=== PATIENT | female | born 1980 | race Caucasian/White ===

== ENCOUNTER 2023-03-11 12:48 | Emergency (ER) | payer OTHER, SELFPAY ==
[2023-03-11 13:02] VITALS: BP 129/86; PULSE 112; RESP 18; TEMP 37; O2SAT 95; BMI 50.8
--- NOTE | 2023-03-11 16:22 | XR_ITS ---
The [address] [address] Patient Name: VALENTINA GEIGER MRN: [id number] date: 1980 Sex: F Assigned Patient Location: ER Current Patient Location: ED.MAIN Accession/Order Number: [id number] Exam Date: 03/11/2023 16:38 Report Date: 03/11/2023 17:07 At the request of: RAY GUERRERO Procedure: XR chest 2V EXAM: XR chest 2V TECHNIQUE: PA and lateral view of the chest HISTORY: cough/ fever COMPARISON: None. FINDINGS: The heart and mediastinum are unremarkable. Hazy opacity over the left costophrenic angle and posteriorly. Degenerative changes are seen of the thoracic spine. XR/XR chest 2V IMPRESSION: Hazy airspace opacity posteriorly on the left which may represent atelectasis and/or pneumonia. Electronically authenticated by: TOSHIA DEGROOT Date: 03/11/2023 17:07
--- NOTE | 2023-03-11 16:23 | ED_ITS ---
HPI - URI/Sore Throat General Chief Complaint: Upper Respiratory Infection Stated Complaint: FLU LIKE SYMPTOMS Time Seen by Provider: 03/11/23 16:15 Source: patient History of Present Illness HPI Narrative: patient is a 43-year-old female presents to the Emergency Room with concerns of runny nose congestion sore throat and cough. Patient reports cough somewhat productive, symptoms started abruptly approximaately 24-36 hours ago. Positive night sweats last night. Patient reports coughing with occasional vomit. Unable to keep down Tylenol or Motrin today. Patient works in a factory with multiple exposures. States she was concerned noting vesicles in her throat today. Patient denies any recent exposure to qhpt-ergb-hhu-mouth. She had her initial boosters for Covid. patient denies any diarrhea or abdominal pain. MD elicited complaint: Reports fever, cough, sore throat, rhinorrhea and nasal congestion; Denies sinus pain Severity: moderate Description of mucous: Reports clear Associated symptoms: Reports fever, myalgias, headache (with coughing. ), rhinorrhea and nasal congestion Related Data Previous Rx's Medication Instructions Recorded azithromycin 250 mg tablet 250 mg PO DAILY 4 days #4 tabs 03/11/23 (Zithromax) promethazine-DM 6.25 mg-15 mg/5 mL 5 ml PO Q6H PRN cough 3 days #118 03/11/23 oral syrup mL Allergies Allergy/AdvReac Type Severity Reaction Status Date / Time dicyclomine Allergy Severe Verified 03/11/23 13:08 Review of Systems ROS Constitutional Reports: fever, chills and night sweats; Denies: change in weight or fatigue Eyes Denies: change in vision Ears, nose, mouth, and throat Reports: throat pain and nasal congestion; Denies: throat swelling Cardiovascular Denies: chest pain or palpitations Respiratory Reports: cough; Denies: shortness of breath Gastrointestinal Reports: nausea and vomiting (with coughing); Denies: abdominal pain Genitourinary Denies: painful urination Musculoskeletal Denies: back pain Integumentary/Breast Denies: rash or itching Neurological Denies: headache Psychiatric Denies: anxiety Hematologic/Lymphatic Denies: easy bruising Exam Narrative Exam Narrative: Nurses notes and vital signs reviewed and patient is not hypoxic. General: The patient appears well, but uncomfortable, complaining of sore throat, patient seated in conference room.patient made aware that we do not have any open rooms for patient's at the time, despite her extended wait. Skin: Warm, dry, no pallor noted.no evidence of rash Head: Normocephalic, atraumatic Neck: Supple, trachea mid-line, no tenderness, no lymphadenopathy Eye: Pupils are equal, round and reactive to light, EOMI Ears, Nose, Mouth, and Throat: TM are clear, normal light reflex, oral mucosa is moist, mild posterior oropharynx erythema no tonsillar hypertrophy, no vesicles, uvula is mid-line, no exudate Cardiovascular: Regular Rate and Rhythm Respiratory: Patient is in no distress, no accessory muscle use, lungs are jarek r to auscultation, no wheezing, rales or rhonchi.with deep breaths patient began coughing up sputum and subsequently vomited Chest Wall: no tenderness Back: non-tender, no CVA tenderness Musculoskeletal: normal ROM, no tenderness, no swelling GI: Normal bowel sounds, no tenderness to palpation, no masses appreciated. No rebound, guarding, or rigidity noted. Neurological: A&O x4 Psychiatric: Cooperative Constitutional Vital Signs, click to edit/add: Last Vital Signs Temp 98.6 F 03/11/23 13:02 Pulse 112 H 03/11/23 13:02 Resp 18 03/11/23 13:02 BP 129/86 03/11/23 13:02 Pulse Ox 95 03/11/23 13:02 O2 Del Method Room Air 03/11/23 13:02 Course Vital Signs Vital signs: Vital Signs Temperature 98.6 F 03/11/23 13:02 Pulse Rate 112 H 03/11/23 13:02 Respiratory Rate 18 03/11/23 13:02 Blood Pressure 129/86 03/11/23 13:02 Pulse Oximetry 95 03/11/23 13:02 Oxygen Delivery Method Room Air 03/11/23 13:02 Temperature 98.6 F 03/11/23 13:02 Pulse Rate 112 H 03/11/23 13:02 Respiratory Rate 18 03/11/23 13:02 Blood Pressure 129/86 03/11/23 13:02 Pulse Oximetry 95 03/11/23 13:02 Oxygen Delivery Method Room Air 03/11/23 13:02 MDM - URI/Sore Throat MDM Narrative Medical decision making narrative: presents with clinical presentation for upper respiratory infection. patient medicated with Zofran for nausea, followed with Tylenol 1 g by mouth. Rapid strep, influenza and Coban swabsobtained, given productive cough with fever reported at home chest x-ray ordered. x-ray reviewed, concern for infiltrate versus atelectasis left posterior lung, patient was placed on doxxycycline, but then stated that doxycycline makes her vomit. He should be treated with azithromycin suspected community acquired pneumonia. Her ALLERGIES list only dicyclomine. We discussed need to follow-up with PCP, she is given the next 2-3 dayss off work pending symptom improvement. She'll be given a prescription for nausea medication and cough suppressant. - discussed acuity in the Emergency Room, and apologies to the patient for weight time, she appears nontoxic in no acute distress. She may return if symptoms worsen or new symptoms develop. She ongoing Tylenol and Motrin dosage. The patient is to followup with primary care physician in next 2-3 days or to return to the emergency department should any of the signs or symptoms worsen or new symptoms develop. Patient had questions answered. The patient agrees with the following Diagnosis and Treatment plan and the patient will be discharged home. Lab Data Attestation: I reviewed the patient's lab results. Labs: Lab Results 03/11/23 Range/Units 16:28 SARS-CoV-2 (PCR) Negative (NEGATIVE) Influenza Type A Ag Negative Influenza Type B Ag Negative Streptococcus Screen Negative Imaging Data Chest x-ray: Radiologist's impression: Assigned Patient Location: ER Current Patient Location: ED.MAIN Accession/Order Number: [id number] Exam Date: 03/11/2023 16:38 Report Date: 03/11/2023 17:07 At the request of: RAY GUERRERO Procedure: XR chest 2V EXAM: XR chest 2V TECHNIQUE: PA and lateral view of the chest HISTORY: cough/ fever COMPARISON: None. FINDINGS: The heart and mediastinum are unremarkable. Hazy opacity over the left costophrenic angle and posteriorly. Degenerative changes are seen of the thoracic spine. IMPRESSION: Hazy airspace opacity posteriorly on the left which may represent atelectasis and/or pneumonia. Electronically authenticated by: TOSHIA DEGROOT Date: 03/11/2023 17:07 Discharge Plan Discharge Chief Complaint: Upper Respiratory Infection Clinical Impression: Upper respiratory infection, Community acquired pneumonia Patient Disposition: Home, Self-Care Time of Disposition Decision: 17:18 Condition: Good Prescriptions / Home Meds: New azithromycin [Zithromax] 250 mg tablet 250 mg PO DAILY 4 Days Qty: 4 0RF Rx Instructions: start on day 2 of therapy promethazine-DM 6.25-15 mg/5 mL syrup 5 ml PO Q6H PRN (Reason: cough) 3 Days Qty: 118 1RF Instructions: Community Acquired Pneumonia (ED) Additional Instructions: please contact her doctor for follow-up this week for reevaluation, work note provided Stand Alone Forms: Portal Instructions Referrals: Physician,Non-Staff, MD [Primary Care Provider] - 1 week
[2023-03-11] MEDS: ONDANSETRON 4 MG RAPDIS TABLET SL (16:47)
[2023-03-11 16:55] LABS: Internal Control Within Normal Limits; Strep A Antigen Screen Negative
[2023-03-11 17:00] LABS: Influenza Virus A Antigen Negative; Influenza Virus B Antigen Negative; Internal Control Within Normal Limits
[2023-03-11 17:01] LABS: SARS-CoV-2 Ag NEGATIVE (NEGATIVE)
[2023-03-11] MEDS: AZITHROMYCIN 250 MG TABLET 500 MG PO (17:32)
[2023-03-11] MEDS: ACETAMINOPHEN 500 MG TABLET 1000 MG PO (17:32)
[2023-03-11 17:44] LABS: Bilirubin Urine NEGATIVE (NEGATIVE); Blood Urine LARGE (NEGATIVE); Clarity Urine CLOUDY (CLEAR); Color Urine YELLOW (YELLOW); Glucose Urine UA NEGATIVE (NEGATIVE); Ketones Urine NEGATIVE (NEGATIVE); Leukocyte Esterase Urine NEGATIVE (NEGATIVE); Nitrite Urine NEGATIVE (NEGATIVE); Protein Urine NEGATIVE (NEG/TRACE); Specific Gravity Urine >=1.030 (1.005-1.025); pH Urine 5.5 (5.0-9.0)
[2023-03-11 17:45] LABS: Urine Microscopic Indicated YES
[2023-03-11 17:51] LABS: Amorphous Sediment Urine MANY; Bacteria Urine TRACE #/HPF (NONE SEEN); Cast Seen? NONE SEEN #/LPF (NONE SEEN); Crystals Seen? None Seen #/HPF (None Seen); Mucus Urine NONE SEEN (NONE SEEN); RBC Urine 0-2 #/HPF (0-2); Squamous Epithelial Cell Urine RARE #/LPF (NONE/RARE); WBC Urine NONE SEEN #/HPF (NONE SEEN)
[2023-03-11 17:52] LABS: Urine Culture Indicated NO
[2023-03-12 16:06] LABS: SARS-CoV-2 NAA NOT DETECTED (NOT DETECTE)
== END 2023-03-11 17:37 | disposition home or self-care (01) ==
PROVIDERS: Personal Emergency Response Attendant; Emergency Provider Emergency Medicine
DX: J18.9 Pneumonia, unspecified organism (principal); J06.9 Acute upper respiratory infection, unspecified; Z20.822 Contact with and (suspected) exposure to COVID-19
CPT/HCPCS: 71046; 81001; 87070; 87635; 87804; 87811; 87880; 99285

== ENCOUNTER 2024-05-04 19:33 | Emergency (ER) | payer OTHER, SELFPAY ==
[2024-05-04 19:41] VITALS: BP 144/82; PULSE 80; TEMP 36.4; O2SAT 96; BMI 49.5
--- OUTSIDE RECORDS SUMMARY | 2024-05-04 19:43 | XMS_ITS | CCD ---
Author Organization [facility] Inform ion [facility] Care Team Providers Care Attending Anesthesiologist Name Role Phone MARLEN BILLS Admitting Unavailable MARLEN BILLS Attending Unavailable REQUEST, DR ROBISON LISTED Primary Care Unavaila ble WEST, DR CHAIM Guerrero Consulting Unavailable NEGAR, MARLEN ESPOSITO Consulting Unavailable MARLEN BILLS Admitting Unavailable NEGAR, MARLEN ESPOSITO Attending Unavailable REQUEST, DR ROBISON LISTED Primary Care Unavaila ble REQUEST, DR ROBISON LISTED Primary Care Unavaila ble LUZ, RAMY Admitting Unavailable LUZ, RAMY Attending Unavailable ALHAJI CLAROS Consulting Unavailable HAY, DR LEONARD Admitting Unavailable HAY, DR LEONARD Attending Unavailable HAY, DR LEONARD Consulting Unavailable REQUEST, DR ROBISON LISTED Primary Care Unavaila ble HAY, DR LEONARD Admitting Unavailable HAY, DR LEONARD Attending Unavailable HAY, DR LEONARD Consulting Unavailable Hackett, Cecile Unavailable Daniel ALSTON, Katiuska Goldberg Attending Unavailable Dalton PABLO, Kobe Enrique Admitting Unavailable Stacy ALSTON, Danielle Farley Attending Un available Loynd DO, Cheryl Goldberg Attending Unavaila ble Allergies Allergy Classification Reported Allergen(s) Allergy Type Date of Onset Reaction(s) Facility (1 source) predniSONE Drug Allergy severe anger [employer] Other (1 source) Adhesive bandage; Translations: [Adhesive Bandage] Propensity to adverse reactions (disorder) [facility] Repository (1 source) Cephalexin; Translations: [cephalexin] Drug Allergy [facility] Repository Medications Current Medications Medication Drug Class(es) Dates Sig (Normalized) Sig (Original) doxycycline hyclate 100 mg oral capsule (1 source) Tetracycline-class Drug Start: 01-15-2023 take 1 capsule by mouth every twelve hours Doxycycline Hyclate 100 MG 1 capsule Orally Twice a day for 10 day(s) Dec, Active methylPREDNISolone 4 mg oral tablet (1 source) Corticosteroid Start: 01-15-2023 Medrol (Thomas) 4 MG as directed Orally for daily dose take half with breakfast half with dinner for 6 days Dec, Active Problems Active Problems Problem Classification Problem Date Documented Da te Episodic/Chronic Abdominal pain (2 sources) Abdominal pain; Translations: [Unspecified abdominal pain] Episodic Administrative/social admission (1 source) Dietary management surveillance; Translations: [Dietary counseling and surveillance] Episodic Anxiety disorders (1 source) Posttraumatic stress disorder; Translations: [Post-traumatic stress disorder, unspecified] Chronic Conditions associated with dizziness or vertigo (2 sources) Meniere's disease, unspecified ear; Translations: [Meniere's disease] Onset: 09-08-2021 Chronic Disorders of lipid metabolism (1 source) Mixed hyperlipidemia; Translations: [Mixed hyperlipidemia] Chronic Essential hypertension (1 source) Hypertensive disorder; Translations: [Essential (primary) hypertension] Chronic Gastroduodenal ulcer (except hemorrhage) (1 source) Antral ulcer; Translations: [Gastric ulcer, unspecified as acute or chronic, without hemorrhage or perforation] Chronic Gastrointestinal hemorrhage (1 source) Melena; Translations: [Melena] Episodic Inflammatory diseases of female pelvic organs (4 sources) Abscess of vulva; Translations: [ABSCESS OF VULVA] Onset: 02-18-2022 Episodic Menstrual disorders (1 source) Disorder of menstruation; Translations: [Irregular menstruation, unspecified] Chronic Mood disorders (2 sources) Major depressive disorder, single episode, unspecified; Translations: [Depression] Chronic Nausea and vomiting (3 sources) Nausea with vomiting, unspecified; Translations: [Vomiting] Onset: 04-06-2021 Episodic Other ear and sense organ disorders (1 source) Unspecified otitis externa, right ear; Translations: [UNS OTITIS EXTERNA RT EAR] Onset: 09-08-2021 Chronic Other endocrine disorders (1 source) Polycystic ovaries; Translations: [Polycystic ovarian syndrome] Chronic Other gastrointestinal disorders (1 source) Celiac disease; Translations: [Celiac disease] Chronic Other gastrointestinal disorders (1 source) Loose stool; Translations: [Other fecal abnormalities] Episodic Other gastrointestinal disorders (1 source) Constipation; Translations: [Constipation, unspecified] Episodic Other nutritional; endocrine; and metabolic disorders (1 source) Morbid obesity; Translations: [Morbid (severe) obesity due to excess calories] Chronic Other nutritional; endocrine; and metabolic disorders (1 source) Body mass index 40+ - severely obese; Translations: [Body mass index (BMI) 50.0-59.9, adult] Chronic Other skin disorders (1 source) Hirsutism; Translations: [Hirsutism] Episodic Other upper respiratory infections (2 sources) Acute pharyngitis, unspecified; Translations: [Acute maxillary sinusitis, unspecified] Onset: 04-06-2021 Episodic Residual codes; unclassified (1 source) Noncompliance with treatment; Translations: [Patient's noncompliance with other medical treatment and regimen] Episodic Residual codes; unclassified (1 source) Insomnia; Translations: [Insomnia, unspecified] Episodic Spondylosis; intervertebral disc disorders; other back problems (1 source) Spondylosis without myelopathy or radiculopathy, thoracic region; Translations: [SPONDYLS W/O MYELO-/RADICULOP THOR] Onset: 06-15-2021 Chronic Viral infection (1 source) COVID-19; Translations: [COVID-19] Onset: 04-06-2021 Past or Other Problems Problem Classification Problem Date Documented Da te Episodic/Chronic Fever of unknown origin (4 sources) Fever, unspecified; Translations: [FEVER UNSPECIFIED] Onset: 04-05-2021 Episodic Other aftercare (1 source) Other moth exterminator (current) drug therapy; Translations: [OTH PENITENTIARY CURRENT DRUG THERAPY] Onset: 04-06-2021 Episodic Other ear and sense organ disorders (3 sources) Otalgia, right ear; Translations: [OTALGIA RIGHT EAR] Onset: 09-06-2021 Episodic Other gastrointestinal disorders (1 source) Diarrhea, unspecified; Translations: [DIARRHEA UNSPECIFIED] Onset: 04-06-2021 Episodic Otitis media and related conditions (1 source) Otitis media, unspecified, bilateral; Translations: [OTITIS MEDIA UNSPECIFIED BILATERAL] Onset: 04-06-2021 Episodic Sprains and strains (8 sources) Strain of muscle and tendon of unspecified wall of thorax, subsequent encounter; Translations: [Strain of muscle, fascia and tendon at neck level, initial encounter] Onset: 06-10-2021 Episodic Superficial injury; contusion (1 source) Contusion of unspecified back wall of thorax, subsequent encounter; Translations: [CONTUS UNS BACK WALL THORAX SUBSQT] Onset: 06-21-2021 Episodic Results Test Name Value Interpretation Reference Range Facility Inpatient Clinical Summaryon 08-10-2023 Inpatient Clinical Summary [facility] [address] [place] [address] [address] Clinical Summary Person Information Name: Cara Lo Age: 43 Years : 1980 Sex: Female PCP: Marital Status: Phone: PCP: Race: White Ethnicity: Not or Language: Serbian Visit Id: Visit Reason: SI Speciality: Acuity: Enc Type: Inpatient Med Service: Behavioral Medicine/Psychiatric Arrival: 08/08/2023 13:04:17 Discharge: Dispo Type: Address: [address] [place] [address] Diagnosis: Bipolar 2 disorder Discharged To: Home Treatments: Devices/Equipment: Professional Skilled Services: Special Services and Community Resources: Counseling, Outpatient Mental Health Treatment Mode of Discharge Transportation: Reason for Admission: Identification 43-year-old? female admitted?after the police that brought her in and escorted her from her job?due to?suicidal ideations, and deemed unfit for work. Addendum by Vanna Grajeda on August 08, 2023 13:19:09 EDT Admit to the milieu Encourage patient to attend groups and activities Encourage patient to work on coping skills and goals Supportive person involvement as appropriate Start Topamax 50 mg twice daily for mood stability Start Vistaril Vistaril 25 mg 4 times daily as needed for anxiety Start Effexor 37.5 mg daily for depression Patient did sign a voluntary however immediately after she signed a 3-day letter Patient was diagnosed with bipolar 2 disorder Discharge Orders Activity Restrictions Diet Instruction Allergies Adhesive Bandage (Rash) cephalexin (Vomiting) Functional Status: Sensory Deficits: None History of Falls: None Mobility Assistance Prior to Admission: ADLs: Independent Gait: Steady Ambulation Assist: Assistive Device: Special Orthopedic Devices: Current Level of Assistance for Self-Care/Mobility: Cognitive Status: Orientation: Orientation Assessment: Oriented x 4 Level of Consciousness: Alert Characteristics of Speech: Clear Aspiration Risk: Affect/Behavior: Appropriate Laboratory or Other Results This Visit (last charted value for your 08/08/2023 visit) Chemistry 08/08/2023 5:39 AM Chol: 260 mg/dL -- Normal range between ( 25 and 199 ) LDL: 179 mg/dL -- Normal range between ( 0 and 99 ) HDL: 48.3 mg/dL -- Normal range between ( 40.0 and 60.0 ) Triglyceride: 162 mg/dL Cardiac Risk: 5.4 VLDL: 32 mg/dL -- Normal range between ( 8 and 39 ) Laboratory: Radiology: Measurements: Height: Weight: Blood Pressure: 126 mmHg / BMI: Respiratory: Respirations: Unlabored Respiratory Symptoms: None Cardiovascular: Heart Sounds: Heart Rhythm: Gastrointestinal: GI Symptoms: Bowel Sounds: Present Vital Signs: Temp Axillary: Temp Temporal Artery: Temp Oral: 36.3 degC Temp Rectal: Apical Heart Rate: 70 bpm Peripheral Pulse Rate: 73 bpm Heart Rate: Respiratory Rate: 16 br/min Diet Diet: Feeding Tolerance: Appetite: Good Advanced Directives: Advance Directive: No Medical Durable Power of Glass Beveler Name: Surrogate Name: Guardian Name: Psychiatric Advanced Directives: No Shane Assessment: 22 Procedures No Procedures Documented Immunizations No Immunizations Documented This Visit New Medications [facility], [address], [place] [id number], [phone] benzocaine-menthol topical (Cepacol Sore Throat 15 mg-3.6 mg mucous membrane lozenge) 1 Lozenges Oral (given by mouth) every hour as needed sore throat for 30 Days. Refills: 0. Last Dose: ____ FLUoxetine (PROzac 40 mg oral capsule) 40 Milligram Oral (given by mouth) every day. Refills: 0. Last Dose: ____ topiramate (Topamax 50 mg oral tablet) 50 Milligram Oral (given by mouth) 2 times a day. Refills: 0. Last Dose: ____ Other Medications diphenhydrAMINE (diphenhydrAMINE 50 mg oral capsule) 50 Milligram Oral (given by mouth) once a day (at bedtime) as needed insomnia. Last Dose: ____ ibuprofen (ibuprofen 600 mg oral tablet) 600 Milligram Oral (given by mouth) every 6 hours as needed mild pain [1-3 on pain scale]. Last Dose: ____ Care Team Members: Attending Physician: Danielle Hancock Consulting Physician: Referring Physician: Patient Education Instructions: SBIRT_ Alcohol Education - ALL (Custom); Smoking Cessation Follow up: With: Address: When: [place] [address] [place] [address] 08/21/2023 08:00:00 Comments: Post hospital discharge appointment for therapy services with Zahra. With: Address: When: [place] [address] [place] [address] 08/15/2023 12:30:00 Comments: Post hospital discharge appointment for medica (more content not included)... Normal [facility] Progress Noteon 08-10-2023 Progress Note Pt was not present for the morning exercise group. Attended 03/26 therapeutic group sessions and 03/26 peer support group sessions. Electronically signed by Cheryl Restrepo 08/10/23 11:44 EDT Normal [facility] Progress Note-Nurseon 2023 Progress Note-Nurse Alert and oriented x4. Calm, cooperative, and pleasant. Medication compliant. Denies SI/HI/hallucinations- states I never had any of these problems to begin with . While feature writer asks assessment questions, patient appears to be agitated with the questions and states nothing is wrong anywhere, I am fine . Attends group as an active participant. Eats snack in the dining room. Initiates interaction with peers. Patient had a visit from her that appeared to go well- patient was allowed extra time with her per account contact associate provider due to being falsely refused her visit the night prior, and the distance that drives to get here. Denies any further questions, comments, or concerns. Does not appear to be in any acute distress. Will continue to monitor. Electronically signed by Marli Ramy B 08/09/23 22:32 EDT [facility] Progress Noteon 08-09-2023 Progress Note Pt was not present for the morning exercise group. Attended 1/2 therapeutic group sessions and 0/1 peer support group sessions. Electronically signed by Cheryl Restrepo 08/09/23 13:04 EDT [facility] Progress Note-Nurseon 2023 Progress Note-Nurse pt slept well/pleasant this am/ mood stable- is eating well/ does not want to share any type of feelings in group setting/ is working on alot of word puzzles- is c/o alot about this person at work has difficulty with/ does not plan going back / may use fmla and find different job/ is hopeful is finally getting help w/ services and hopefully disability stuff for - is denying feeling depressed or anxious/ no self harm thoughts- is somewhat projective and blaming/ will work on homework wants to go home tomorrow/ mood stable- napped couple hrs in afternoon Electronically signed by Hyacinth Medel 08/09/23 17:31 EDT [facility] Progress Note-Nurse Pt was a bit irritated upon initial assessment. Pt stated she didnt feel like she needs to be here. Pt and this RN talked for some time and pt verbalized feeling stressed from work related to issues with a co worker. This lead to her being put on a type of lay off from her job. Them saying she wasnt fit to work related to her mental health. Pt did not understand this as she denies being suicidal. Pt stated she does have intrusive thinking at times when she drives to work thinking her son and might be better off without her because they can get the services they need if they didnt have her income. Pt stated she also has thoughts of Why am I dong this? when she drives to work, stating she is miserable at that job because of the issues with the coworker. Pt stated she feels stressed being the caregiver of her son and not getting far with referrals for testing he needs so he can get services and possibly social security. Son is not able to do many many things. Cant barely do his own ADLs and definitely can not work, according to patient. Pt feels stressed that her is not able to work due to many of his own disabilities. She doesnt have any insurance and he has meds that are costly. She is the only income and has been denied for social security. Pt states they have been fighting with that for many years. Pt stated she feels incredibly stressed and now even more so being let go from work at this time. Pt and nurse discussed her taking this time here in [place] to collect her thoughts and make a plan for what is to come. Pt stated she would do well making lists as she feels like she is ADHD and her mind is not able to organize thinking at times. Pt stated she could benefit from a different psych provider for herself and her son. Pt stated she is not getting very far with what her son needs with their current psychiatrist. Pt denies suicidal thoughts but does admit to some intrusive thinking at times. Stated she doesnt have a plan and doesnt have any kind of intent on wanting to make a plan. But contributes the intrusive thinking to a large amount of stress both at home and work. No delusions or hallucinations. Pt took HS meds per order. Electronically signed by Casie Ramos 08/09/23 01:49 EDT Normal [facility] .Fentanyl Scrn wo Conf,Uron 08-08-2023 Ur Fentanyl Scrn Negative Normal NEG <1.0 [facility] Comment on above: Performed By: #### C [id number] ####[place] [address] Ur Fentanyl Scrn Qnt 0.08 ng/mL Normal <=0.99 [facility] Comment on above: Performed By: #### C [id number] ####[place] [address] .UA Microscp Ao 08-08-2023 UA RBC Quant 0 /HPF Normal 0-5 [facility] Comment on above: Performed By: #### . Urinalysis Microscopic Auto ####[place] [address] UA WBC Quant 0 /HPF Normal 0-5 [facility] Comment on above: Performed By: #### . Urinalysis Microscopic Auto ####[place] [address] .eGFRon 08-08-2023 GFR/1.73 sq M.predicted MDRD (S/P/Bld) [Vol rate/Area] mL/min/{1.73_m2} Normal >=60 [facility] Comment on above: Result Comment: [facility] have implemented the eGFR calculation approach that does not have a coefficient for race and that conforms to the NKF-ASN Task Force Recommendations. Stages of Chronic Kidney Disease GFR Stage 3a Mild to moderate loss of kidney function 59 to 45 Stage 3b Moderate to severe loss of kidney function 44 to 33 Stage 4 Severe loss of kidney function 29 to 15 Stage 5 Kidney failure Less than 15 GFR calculated using the CKD-Epi Creatinine Equation (2020): eGFR = 142 X min(SCr/?, 1)? X max(SCr /?, 1)-1.200 X 0.9938Age X 1.012 [if female] Abbreviations/Units: eGFR (estimated glomerular filtration rate) = mL/min/1.73 m2 SCr (standardized serum creatinine) = mg/dL ? = 0.7 (females) or 0.9 (males) ? = -0.241 (females) or -0.302 (males) min = indicates the minimum of SCr/? or 1 max = indicates the maximum of SCr/? or 1 Age = years Performed By: #### E GFR ####[place] [id number] CBC w/ Diffon 08-08-2023 Erythrocyte distribution width (RBC) [Ratio] 13.4 % Normal 11.6-14.8 [facility] Comment on above: Performed By: #### C BC ####[place] [id number] Hematocrit (Bld) [Volume fraction] 43.4 % Normal 36.0-46.0 [facility] Comment on above: Performed By: #### C BC ####[place] [id number] Hemoglobin (Bld) [Mass/Vol] 14.2 g/dL Normal 12.0-16.0 [facility] Comment on above: Performed By: #### C BC ####[place] [id number] MCH (RBC) [Entitic mass] 29.5 pg Normal 27.0-35.0 [facility] Comment on above: Performed By: #### C BC ####[place] [id number] MCHC 32.6 % Normal 31.0-37.0 [facility] Comment on above: Performed By: #### C BC ####[place] [id number] MCV (RBC) [Entitic vol] 90.3 fL Normal 80.0-100.0 [facility] Comment on above: Performed By: #### C BC ####[place] [id number] Platelet 232 x10*3/mcL Normal 150-450 [facility] Comment on above: Performed By: #### C BC ####[address] [address] Platelet mean volume (Bld) [Entitic vol] 9.8 fL Normal 6.7-10.6 [facility] Comment on above: Performed By: #### C BC ####[address] [address] RBC 4.81 x10*6/mcL Normal 3.80-5.20 [facility] Comment on above: Performed By: #### C BC ####[address] [address] WBC 8.4 x10*3/mcL Normal 4.5-11.0 [facility] Comment on above: Performed By: #### C BC ####[address] [address] CMPon 08-08-2023 Albumin [Mass/Vol] 4.4 g/dL Normal 3.2-4.9 [facility] Comment on above: Performed By: #### C OMP ####[address] [address] Albumin/Globulin [Mass ratio] 1.2 {ratio} Normal 1.1-2.2 [facility] Comment on above: Performed By: #### C OMP ####[address] [address] Alk Phos 74 IU/L Normal 32-91 [facility] Comment on above: Performed By: #### C OMP ####[address] [address] ALT [Catalytic activity/Vol] 24 U/L Normal 14-54 [facility] Comment on above: Performed By: #### C OMP ####[address] [address] Anion gap [Moles/Vol] 9 mmol/L Normal 4-12 [facility] Comment on above: Performed By: #### C OMP ####[address] [address] AST [Catalytic activity/Vol] 19 U/L Normal 15-41 [facility] Comment on above: Performed By: #### C OMP ####[address] [address] Bili Total 1.5 mg/dL High 0.3-1.2 [facility] Comment on above: Performed By: #### C OMP ####[address] [address] Calcium [Mass/Vol] 9.0 mg/dL Normal 8.5-10.3 [facility] Comment on above: Performed By: #### C OMP ####[address] [address] Chloride [Moles/Vol] 102 mmol/L Normal 98-110 [facility] Comment on above: Performed By: #### C OMP ####[address] [address] CO2 [Moles/Vol] 25 mmol/L Normal 22-32 [facility] Comment on above: Performed By: #### C OMP ####[address] [address] Creatinine [Mass/Vol] 0.84 mg/dL Normal 0.44-1.03 [facility] Comment on above: Performed By: #### C OMP ####[address] [address] Glucose [Mass/Vol] 103 mg/dL High 70-99 [facility] Comment on above: Performed By: #### C OMP ####[address] [address] Potassium [Moles/Vol] 3.4 mmol/L Normal 3.4-4.8 [facility] Comment on above: Performed By: #### C OMP ####[address] [address] Protein [Mass/Vol] 8.1 g/dL Normal 6.5-8.1 [facility] Comment on above: Performed By: #### C OMP ####[address] [address] Sodium [Moles/Vol] 136 mmol/L Normal 133-142 [facility] Comment on above: Performed By: #### C OMP ####[address] [address] Urea nitrogen [Mass/Vol] 11 mg/dL Normal 8-26 [facility] Comment on above: Performed By: #### C OMP ####[address] [address] Urea nitrogen/Creatini ne [Mass ratio] 13.1 mg/mg Normal 10.0-20.0 [facility] Comment on above: Performed By: #### C OMP ####[address] [address] Diff Autoon 08-08-2023 Baso Absolute 0.0 x10*3/mcL Normal 0.0-0.2 [facility] Comment on above: Performed By: #### . Automated Diff ####[address] [address] Basophils/100 WBC (Bld) 0.5 % Normal 0.0-1.5 [facility] Comment on above: Performed By: #### . Automated Diff ####[address] [address] Eos Absolute 0.0 x10*3/mcL Normal 0.0-0.4 [facility] Comment on above: Performed By: #### . Automated Diff ####[address] [address] Eosinophils/100 WBC (Bld) 0.5 % Normal 0.0-5.4 [facility] Comment on above: Performed By: #### . Automated Diff ####[address] [address] Lymph Absolute 2.3 x10*3/mcL Normal 1.0-4.8 [facility] Comment on above: Performed By: #### . Automated Diff ####[address] [place] [address] Lymphocytes/100 WBC (Bld) 27.3 % Normal 27.2-40.8 [facility] Comment on above: Performed By: #### . Automated Diff ####[address] [address] Wilbarger Absolute 0.5 x10*3/mcL Normal 0.1-1.1 [facility] Comment on above: Performed By: #### . Automated Diff ####[place] [id number] Monocytes/100 WBC (Bld) 5.4 % Normal 3.7-11.9 [facility] Comment on above: Performed By: #### . Automated Diff ####[place] [id number] Neutro Absolute 5.6 x10*3/mcL Normal 1.8-7.7 [facility] Comment on above: Performed By: #### . Automated Diff ####[place] [id number] Neutro Auto 66.3 % Normal 47.2-70.8 [facility] Comment on above: Performed By: #### . Automated Diff ####[place] [id number] ED Clinical Summaryon 2023 ED Clinical Summary [place] [id number] ED Clinical Summary Person Information Name: Cara Lo [facility] Age: 43 Years : 1980 Sex: Female PCP: Marital Status: Phone: Race: White Ethnicity: Not or Language: Serbian Visit Reason: Psychiatric screening exam; prescreen Acuity: 2 Enc Type: Emergency Med Service: Emergency Medicine Arrival: 08/08/2023 04:33:32 Discharge: 08/08/2023 12:09:00 LOS: 000 07:36 Checkin: 08/08/2023 04:33:32 Checkout: 08/08/2023 12:09:00 Dispo Type: Psychiatric Facility Address: [place] [address] Provider Notes: History of Present Illness Patient is a 43-year-old lady who comes to the emergency department brought by susana's kisha from work at [employer]. Possible SI. Plan to run car into a guardrail on my way home . ?Patient reports that she is just been under a lot of stress that she says since November she has had a lot of difficulties?at work she is?recovering from?complex PTSD?and psychiatric illness. ?She reports insomnia and elaine. ?She is not hallucinating she is not delusional she has been taking her medications following with her therapist regularly?she reports that she is been having some difficulties at work. ?She was at [employer] working today?and she reports they are very close proximity and she scratched her arm on?some kind of a bolt?and when she went to report it?was having some difficulty with the report?and the [employer] supervisor felt that she was not?cleared for work.? The patient had apparently asked someone about a suicide hotline?and had reported to a friend or family member that she was?going to wreck her car on purpose.? The patient reports that this was just talk?that she knows she is not going to commit suicide she does not have any intent?but is having a very difficult time?with her mental health and her?social outlook at this time. Review of Systems As reviewed in the HPR. All other systems reviewed are negative or normal. Attending Note Vitals & Measurements T:?36.6??C?(Oral)? HR:?75?(Peripheral)? HR:?75?(Monitored)? RR:?16? BP:?137/97? SpO2:?94%? HT:?175?cm? WT:?159?kg?(Dosing)? Diagnosis: 1:Depression Problems No Problems Documented Smoking Status: Smoking Status Never (less than 100 in lifetime) Functional Status: Sensory Deficits: History of Falls: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
--- NOTE | 2024-05-04 19:51 | PC.NURSE ---
Mid-level provider in to see pt.
--- NOTE | 2024-05-04 19:59 | ED.BACK1 ---
HPI HPI - Back Pain/Injury General Chief Complaint: Back Pain/Injury Stated Complaint: back pain Time Seen by Provider: 05/04/24 19:39 Source: patient Mode of arrival: Wheelchair Limitations: no limitations History of Present Illness HPI Narrative: Patient is a 44-year-old female presents to the ER with concerns of right mid to lower back pain. Patient states symptoms started this morning she reports a history of POTS occasionally will have nausea and vomiting in the morning and upon vomiting developed a pulling sensation in her right back patient took Motrin earlier today without any relief. She denies any radicular symptoms into her lower legs or into her abdomen. She denies any dysuria. She denies history of kidney stones. Patient states she has had similar symptoms in the back a little bit higher when she strained her rhomboids. She denies any current nausea or vomiting she denies fever or chills. Patient denies any abdominal pain. Patient denies chance of states she is not been sexually active she is due to start her menstrual cycle any day but has a history of PCOS and endometriosis. MD elicited complaint: Reports back pain and back injury (bending over this AM to vomit. ) Pertinent past history: Reports prior back pain Timing: Reports other (worse with position) Severity: moderate Similar Symptoms Previously: Yes Quality: Reports sharp, aching and spasming Associated symptoms: denies other symptoms, weakness and increased urinary frequency Treatments prior to arrival: NSAIDS Work related injury: No Related Data Previous Rx's ?Medication ?Instructions ?Recorded azithromycin 250 mg tablet 250 mg PO DAILY 4 days #4 tabs 03/11/23 (Zithromax) promethazine-DM 6.25 mg-15 mg/5 mL 5 ml PO Q6H PRN cough 3 days #118 03/11/23 oral syrup mL methylprednisolone 4 mg tablets in 4 mg PO DAILY #21 ea 05/04/24 a dose pack (Medrol (Thomas)) sulfamethoxazole 800 1 tab PO BID 3 days #6 tabs 05/04/24 mg-trimethoprim 160 mg tablet (Bactrim DS) tizanidine 4 mg capsule 4 mg PO TID PRN muscle spasticity 05/04/24 5 days #15 caps Allergies Allergy/AdvReac Type Severity Reaction Status Date / Time dicyclomine Allergy Severe Hives Verified 05/04/24 19:46 Opioid HPI Opioid Management Most Recent Opioid Data: Last Pain Scale 10 05/04/24 20:09 05/04/24 Review of Systems ROS Constitutional Denies: fever or chills Eyes Denies: change in vision Ears, nose, mouth, and throat Denies: throat pain or neck pain Cardiovascular Denies: chest pain Respiratory Denies: shortness of breath Gastrointestinal Denies: abdominal pain or nausea Genitourinary Denies: painful urination or urinary frequency Musculoskeletal Reports: back pain; Denies: neck pain, extremity pain, extremity swelling or joint pain Integumentary/Breast Denies: rash or itching Neurological Denies: headache Psychiatric Denies: anxiety PFSH PFSH Social History Little interest or pleasure in doing things: not at all Feeling down, depressed, or hopeless: not at all Exam Narrative Exam Narrative: Vital Signs reviewed and nurse's notes reviewed. The patient is not hypoxic. General: Alert, no acute distress, patient resting comfortably Skin: warm, intact, no pallor noted, no rash Head: Normocephalic, atraumatic Eye: Normal conjunctiva, EOMI Respiratory: No acute distress Abdomen: Normal bowel sounds, soft, nontender, no masses detected. No rebound, guarding, or rigidity noted. No midline pulsatile mass. Back: inspection of the back shows no obvious deformity, no swelling, no ecchymosis, contusion, abrasion, swelling, erythema, fluctuance or induration. No step offs or crepitus noted. No CVA tenderness noted on the left. + spasm to right paravertebral with pain from lower thoracic to upper lumbar. No midline bony pain. Tenderness noted to right paravertebral. Straight leg raise on left is negative. Straight leg raise on right is negative. Musculoskeletal: No deformity noted to bilateral lower extremities. no cyanosis or mottling noted. normal pulses at DP and PT 2+ bilaterally and symmetrically. Normal 5/5 strength at ankles with dorsiflexion and plantar flexion. Patient is able to ambulate. Normal sensation noted to the bilateral lower extremities. Neurological: alert and oriented x4, normal sensory and motor observed. DTR 2+ at patellar and achilles bilaterally. Psychiatric: Cooperative Constitutional Vital Signs, click to edit/add: Last Vital Signs Temp 97.6 F 05/04/24 19:41 Pulse 80 05/04/24 19:41 Resp 16 05/04/24 19:41 BP 144/82 H 05/04/24 19:41 Pulse Ox 96 05/04/24 19:41 O2 Del Method Room Air 05/04/24 19:41 Course Vital Signs Vital signs: Vital Signs Temperature 97.6 F 05/04/24 19:41 Pulse Rate 80 05/04/24 19:41 Respiratory Rate 16 05/04/24 19:41 Blood Pressure 144/82 H 05/04/24 19:41 Pulse Oximetry 96 05/04/24 19:41 Oxygen Delivery Method Room Air 05/04/24 19:41 Temperature 97.6 F 05/04/24 19:41 Pulse Rate 80 05/04/24 19:41 Respiratory Rate 16 05/04/24 19:41 Blood Pressure 144/82 H 05/04/24 19:41 Pulse Oximetry 96 05/04/24 19:41 Oxygen Delivery Method Room Air 05/04/24 19:41 MDM - Back Pain/Injury MDM Narrative Medical decision making narrative: Patient was educated on safe dosage of Motrin. Last taking more than recommended on the package may result in adverse side effects. Patient was agreeable to give a urine sample. She denies any history of kidney stones. She is without recent illness and symptoms of back pain started after she was leaning forward vomiting earlier this morning. Patient states the vomiting and nausea happen on occasion and are attributable to her POTS where she gets lightheaded and dizzy at times she denies any injury. She denies any fever fall or trauma denies any radicular symptoms. Patient was given morphine 6 mg IM and Valium 2 mg p.o. Patient reevaluated, reports symptoms are improved. She can breathe easily and tolerates pain much better, there is no evidence of rash. We discussed her work she is given a note to be off work through Sunday. We discussed medication patient initially denied any urinary symptoms she reports cutting caffeine and pop out of her diet and has been urinating more frequently this has been a symptom of a urinary tract infection in the past she is aware that a urine culture is pending but she is requesting treatment with Bactrim in the interim pending urine culture. I do not feel she has a kidney infection based on the urinalysis patient agreeable to return to the ER if symptoms worsen or new symptoms develop. We discussed use of the Medrol Dosepak and muscle relaxant. The patient was noted to be grossly neurologically intact. The patient was treated with adequate analgesia here in the emergency department. The patient vital signs were reviewed in the patient had no neurologic deficit noted. Due to the nature of the patient's history of present illness and the benign physical exam we do not feel that x-rays were clinically warranted. The patient is to followup in the next 3-5 days for repeat evaluation or to return to the emergency department if symptoms worsen or new symptoms develop. The patient will be discharged home with adequate analgesia. The patient has no other questions or concerns at this time. Lab Data Labs: Lab Results 05/04/24 Range/Units 20:10 Urine Color Yellow (YELLOW) Urine Clarity Clear (CLEAR) Urine pH 6.0 (5.0-9.0) Ur Specific [place] >=1.030 A (1.005-1.025) Urine Protein Negative (NEG/TRACE) mg/dL Urine Glucose (UA) Negative (NEGATIVE) mg/dL Urine Ketones Negative (NEGATIVE) mg/dL Urine Occult Blood Negative (NEGATIVE) Urine Nitrite Negative (NEGATIVE) Urine Bilirubin Negative (NEGATIVE) Urine Urobilinogen 1.0 (0.2-1.0) EU/dL Ur Leukocyte Esterase Negative (NEGATIVE) Urine RBC 0-2 (0-2) #/HPF Urine WBC 2-5 A (NONE SEEN) #/HPF Ur Squamous Epith Cells Few A (NONE/RARE) #/LPF Urine Crystals None seen (None Seen) #/HPF Urine Bacteria Small A (NONE SEEN) #/HPF Urine Casts None seen (NONE SEEN) #/LPF Urine Mucus Trace A (NONE SEEN) Ur Culture Indicated? Yes Urine HCG, Qual Negative (NEGATIVE) Discharge Plan Discharge Chief Complaint: Back Pain/Injury Clinical Impression: Back pain, UTI (urinary tract infection) Patient Disposition: Home, Self-Care Time of Disposition Decision: 20:45 Condition: Good Prescriptions / Home Meds: New sulfamethoxazole-trimethoprim [Bactrim DS] 800-160 mg tablet 1 tab PO BID 3 Days Qty: 6 0RF tizanidine 4 mg capsule 4 mg PO TID PRN (Reason: muscle spasticity) 5 Days Qty: 15 0RF methylprednisolone [Medrol (Thomas)] 4 mg tablets,dose pack 4 mg PO DAILY Qty: 21 0RF No Action azithromycin [Zithromax] 250 mg tablet 250 mg PO DAILY 4 Days Qty: 4 0RF Rx Instructions: start on day 2 of therapy promethazine-DM 6.25-15 mg/5 mL syrup 5 ml PO Q6H PRN (Reason: cough) 3 Days Qty: 118 1RF Print Language: Russian Instructions: Urinary Incontinence (ED), Back Pain (ED) Additional Instructions: Please follow up with your family doctor in the next 2-3 days for recheck Consider physical therapy referal if not improving Urine culture is pending Return to ER if symptoms worsen or new symptoms develop
[2024-05-04] MEDS: MORPHINE SULFATE 4 MG/ML VIAL 6 MG IM (20:09)
[2024-05-04] MEDS: ONDANSETRON 4 MG RAPDIS TABLET SL (20:09)
[2024-05-04] MEDS: DIAZEPAM 2 MG TABLET PO (20:15)
[2024-05-04 20:16] LABS: Bilirubin Urine NEGATIVE (NEGATIVE); Blood Urine NEGATIVE (NEGATIVE); Clarity Urine CLEAR (CLEAR); Color Urine YELLOW (YELLOW); Glucose Urine UA NEGATIVE (NEGATIVE); Ketones Urine NEGATIVE (NEGATIVE); Leukocyte Esterase Urine NEGATIVE (NEGATIVE); Nitrite Urine NEGATIVE (NEGATIVE); Protein Urine NEGATIVE (NEG/TRACE); Specific Gravity Urine >=1.030 (1.005-1.025)
[2024-05-04 20:17] LABS: HCG Qualitative Urine* NEGATIVE (NEGATIVE); Internal Control Within Normal Limits; Urine Microscopic Indicated YES
[2024-05-04 20:22] LABS: Bacteria Urine SMALL #/HPF (NONE SEEN); RBC Urine 0-2 #/HPF (0-2)
[2024-05-04 20:23] LABS: Cast Seen? NONE SEEN #/LPF (NONE SEEN); Crystals Seen? None Seen #/HPF (None Seen); Mucus Urine TRACE (NONE SEEN); Squamous Epithelial Cell Urine FEW #/LPF (NONE/RARE); Urine Culture Indicated YES
[2024-05-04] MEDS: SULFAMETHOXAZOLE/TRIMETHOPRIM 800-160 MG TABLET 1 TAB PO (20:53)
== END 2024-05-04 20:59 | disposition home or self-care (01) ==
PROVIDERS: Personal Emergency Response Attendant; Emergency Provider Emergency Medicine
DX: N39.0 Urinary tract infection, site not specified (principal); M54.9 Dorsalgia, unspecified; G90.A Postural orthostatic tachycardia syndrome [POTS]; E28.2 Polycystic ovarian syndrome; N80.9 Endometriosis, unspecified
CPT/HCPCS: 81001; 84703; 87086; 96372; 99284; J2270; Q0162

== ENCOUNTER 2024-06-07 07:49 | Emergency (ER) | payer OTHER, SELFPAY ==
[2024-06-07 07:53] VITALS: BP 140/89; PULSE 74; TEMP 36.9; O2SAT 95; BMI 51.7
--- OUTSIDE RECORDS SUMMARY | 2024-06-07 07:55 | XMS_ITS | CCD ---
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 Complaint Patient brought in by Judd ABREU for mental health evaluation after making comments at work. ED Attending Attestation I have assumed care of the patient from [Richard ], who has discussed the clinical presentation, work-up, and ED course thus far. I have reviewed the patient?s medical record and ED course and agree with all aspects of care thus far. Was signed out to me from Dr. Keene to awaiting the prescreener evaluation, patient has been suicidal plans, the patient will be admitted to [facility] for further psychiatric workup. Attending Note Vitals [...] 05:39 66.3 Lymph Auto 08/08/23 05:39 27.3 [place] Auto 08/08/23 05:39 5.4 Eos Auto 08/08/23 05:39 0.5 Basophil Auto 08/08/23 05:39 0.5 Neutro Absolute 08/08/23 05:39 5.6 Lymph Absolute 08/08/23 05:39 2.3 [place] Absolute 08/08/23 05:39 0.5 Eos Absolute 08/08/23 [...] by Kike Nava MD 08/08/23 11:44 EDT [facility] Evaluation note 01-15-2023 Note Date & [...] with PCP if febrile or new/worsening s/s. [facility] Other Clinical Note 01-05-2023 Note Date & [...] the first few days. ?You may use xsau-sxn-ciqmzta medicine, such as acetaminophen or ibuprofen, to [...] 100.4?F (38?C) or as advised? ?[employer] ? [id number] [employer]. [address] [place] [address], [place] [address]. All rights reserved. This information is not [...] Dry your ears with a towel or english division chair after getting wet. Also, use ear plugs [...] directed by your healthcare provider ?[employer] ? [id number] [employer]. [address] [place] [address]. All rights reserved. This information is not [...] self-care is to (more content not included)... [facility] History general Narrative - Reported 06-22-2015 [...] Surgical History EGD Hospitalization History see above [facility] Other Summary Purpose Family History No Family History Records FoundNo Family History Records Found Advance Directives No Advanced Directives Records FoundNo Advanced Directives Records Found Additional Source Comments INFORMATION SOURCE (unrecogn ized section and content) DATE CREATED AUTHOR 02/22/2022 [employer] DATE CREATED AUTHOR AUTHOR'S LEAH WILLIAM 08/19/2023 [facility] REASON FOR VISIT (unrecogniz ed section [...] BE BASED ON THE PRIMARY CLINICAL RECORDS. [employer] provides no warranty or guarantee of the accuracy or completeness of information in this document.
--- NOTE | 2024-06-07 08:00 | PC.NURSE ---
Bruise to right calf area, area slightly raised, no redness or warmth at site.
--- NOTE | 2024-06-07 08:11 | ED_ITS ---
HPI HPI - Extremity Injury (Lower) General Chief Complaint: Extremity Injury, Lower Stated Complaint: LOWER RIGHT EXTREMITY PAIN/SWELLING Time Seen by Provider: 06/07/24 08:05 Source: patient Mode of arrival: walk-in History of Present Illness HPI Narrative: The patient is a 44 years old female who is coming to the ER after she had a bruise to her right calf area, almost 45 minutes ago, the patient initially men tioned that she have a history of blood clot but when clarifying the patient apparently had history of ecchymosis or bruising easily Patient have no history of DVT and I did explain to her the mechanism of injury and the fact that the dog just hit her right calf area 45 minutes ago does not cause her to have a DVT The patient was able to move with no difficulty Related Data Home Medications ?Medication ?Instructions ?Recorded ?Confirmed famotidine 20 mg tablet 20 mg PO DAILY 06/07/24 06/07/24 Previous Rx's ?Medication ?Instructions ?Recorded ibuprofen 800 mg tablet 800 mg PO Q8H PRN pain #20 tabs 06/07/24 Allergies Allergy/AdvReac Type Severity Reaction Status Date / Time dicyclomine Allergy Severe Hives Verified 06/07/24 07:53 Opioid HPI Opioid Management Most Recent Pain and Opioid Data: Last Pain Scale 10 05/04/24 20:09 05/04/24 Review of Systems ROS Status of ROS 10 or more systems reviewed and unremark able except as noted in history and below PFSH PFSH Social History Little interest or pleasure in doing things: not at all Feeling down, depressed, or hopeless: not at all Exam Narrative Exam Narrative: Nurses notes and vital signs reviewed and patient is not hypoxic. General: Well-appearing and in no apparent distress. Skin: Warm, dry, no pallor noted. No rash. Head: Normocephalic, atraumatic. Lower extremity examination : The patient have ecchymosis in the calf area on the right side that is measuring 3 x 5 cm oval in shape The patient have no tenderness upon palpation of the tibia and the patient have no vascular injury detected Constitutional Vital Signs, click to edit/add: Last Vital Signs Temp 98.5 F 06/07/24 07:53 Pulse 74 06/07/24 07:53 Resp 20 06/07/24 07:53 BP 140/89 06/07/24 07:53 Pulse Ox 95 06/07/24 07:53 Course Vital Signs Vital signs: Vital Signs Temperature 98.5 F 06/07/24 07:53 Pulse Rate 74 06/07/24 07:53 Respiratory Rate 20 06/07/24 07:53 Blood Pressure 140/89 06/07/24 07:53 Pulse Oximetry 95 06/07/24 07:53 Temperature 98.5 F 06/07/24 07:53 Pulse Rate 74 06/07/24 07:53 Respiratory Rate 20 06/07/24 07:53 Blood Pressure 140/89 06/07/24 07:53 Pulse Oximetry 95 06/07/24 07:53 MDM - Extremity Injury (Lower) MDM Narrative Medical decision making narrative: The patient presenting with a simple bruise to her right calf area and I did explain to her and clarified the fact that this is not the mechanism of DVT specially that she just had a contusion 45 minutes ago The patient to apply Jimmy wrap elevate and ice treatment in addition to ibuprofen I did explain to the patient that in case of any increasing swelling or any other concerns that she developed over the next few days she is to come back to the ER but right now there is no concern for DVT The patient is to follow up with primary care physician in next 2-3 days or to return to the emergency department should any of the signs or symptoms worsen or new symptoms develop. The patient agrees with the following Diagnosis and Treatment plan and the patient will be discharged home. Discharge Plan Discharge Chief Complaint: Extremity Injury, Lower Clinical Impression: Contusion Patient Disposition: Home, Self-Care Time of Disposition Decision: 08:08 Condition: Good Prescriptions / Home Meds: New ibuprofen 800 mg tablet 800 mg PO Q8H PRN (Reason: pain) Qty: 20 0RF No Action famotidine 20 mg tablet 20 mg PO DAILY Print Language: Icelandic Instructions: Ice Pack Application (ED), Bone Bruise (ED) Referrals: Physician,Non-Staff, MD [Primary Care Provider] - 1 week
== END 2024-06-07 08:21 | disposition home or self-care (01) ==
PROVIDERS: Emergency Provider Emergency Medicine
DX: S80.11XA Contusion of right lower leg, initial encounter (principal); W54.1XXA Struck by dog, initial encounter
CPT/HCPCS: 99283

== ENCOUNTER 2024-12-01 02:29 | Emergency (ER) | payer OTHER, SELFPAY ==
--- OUTSIDE RECORDS SUMMARY | 2022-06-06 06:00 | XMS_ITS | Continuity of Care Document ---
Author Organization [facility] Address [address] [place] [address] Phone Care Team Providers Care Safety Intern Name Role Phone Addie BRUCE, Manoj Unavailable Unavailable Allergies, Adverse Reactions, Alerts Substance Reaction Status Criticality No Known Allergies Active No Inform ation Procedures Procedure Date Limited Oral Eval Intraoral-periapical 1st Film Bitewig-single Film Oral Hygiene Instruction Advance Directives Directive Yes / No Effective Date File Name No Information Encounters Encounter Description Practice Location Reason(s) For Visit Diagnoses Date Provider Providers Copied on Encounter [facility], [address] [place] [address], [id number], [place] tel:[phone] [facility] [place] (chief complaint) Encounter for screening for dental disorders Addie Aranda. [address], [place], [id number], [place]. tel:[phone] Family History Family Member Type Diagnosis Age At Onset No Information Payers Payer name Insurance type Covered alliance party ID Authoriza tion(s) No Information Social History Type Description Quantity Date Captured Comments Alcohol Use Details Unknown Caffeine Use Details Unknown Tobacco Use Status No Information Smoking Status No Information Sex Female Sexual Orientation Bisexual Gender Identity Female Vital Signs Date / Time: Height Weight BMI Pulse Rate Blood Pressure Temperature Respiratory Rate Body Surface Area Head Circumference Head Circ. Percentile Wt./Suman. Percentile BMI percentile Pulse Ox Inhaled Ox 10:28 AM 76 /min 118/76 mm[Hg] 97.80 F Chief Complaint And Reason For Visit From encounter dated '06/06/2022 10:00'. [place] (chief complaint). Description: [place] Reason For Referral Reason For Referral No Information Plan Of Treatment Date Type Action Status Goal Depression screening. Due on due Goal RLP. Due on due Goal Influenza vaccine. Due on due Goal Lipid panel. Due on 023 due Goal Tdap Vaccine. Due on 2022 due Goal PRAPARE ASSESSMENT. Due on due Goal Tdap. Due on due History Of Present Illness Encounter Date Complaint History Of Prese nt Illness DE [place] Functional Status Date Functional Assessmen t No Information Instructions Date Instruction Additional Infor mation No Information Assessments Type Assessment Date No Information Patient Care Teams Name Effective Dates (start - stop) Status Members No Information
--- OUTSIDE RECORDS SUMMARY | 2023-08-27 05:30 | XMS_ITS ---
Author Organization [facility] Address [address] [place] [address] Care Team Providers Care Senior Construction Estimator Name Role Phone Sanjay Candelario Primary Care Provider Zahra Lopez Unavailable [phone] Tia Holloway Unavailable [phone] REASON FOR VISIT est pcp Encounters Encounter Location Date Provider Diagnosis [facility] [address] [place] [address] 08/27/2023 Tia Holloway Plan Of Treatment No Information Progress Notes * KRYSTIAN GEIGEROB:1980 ( 44 yo F)Acc No.[id number]:08/27/2023 Progress Notes Patient: VALENTINA MILLER Appointment Provider: Robson MATA DO :1980 A ge:43 Y S ex:Female Date:08/27/2023 Address[address] [place], [id number] Pcp:Sanjay Candelario Subjective: * Chief Complaints: * 1 . Est pcp. * Medical History: Objective: * Vitals: Assessment: Plan: * Treatment: Care Plan: * Problems: * Images: * Electronic signature of Meena Holloway DO on 12/01/2024 at 02:34 AM EDT Sign off status: Pending * Appointment Provider: Robson MATA DO Date: 0 08/27/2023 Generated for Susu duarte/Jenniefr/Esitting on: 0 12/01/2024 02:34 AM EDT
--- OUTSIDE RECORDS SUMMARY | 2023-10-31 09:00 | XMS_ITS ---
Author Organization [facility] Address [address] [place] [address] Care Team Providers Care Hospital Admissions Clerk Name Role Phone Sanjay Candelario Primary Care Provider JohnZahra Unavailable [phone] REASON FOR VISIT 1 month f/u (COPAY TO BE PAID) Encounters Encounter Location Date Provider Diagnosis [facility] [address] [place] [address] 10/31/2023 Sanjay Candelario Plan Of Treatment No Information Progress Notes * KRYSTIAN GEIGEROB:1980 ( 44 yo F)Acc No.[id number]:10/31/2023 Behavioral Health Patient: VALENTINA MILLER Provider: ANIYAH Bazzi :1980 A ge:43 Y S ex:Female Date:10/31/2023 Address[id number] Subjective: * Chief Complaints: * 1 . 1 month f/u (COPAY TO BE PAID). * Medical History: Objective: * Vitals: Assessment: Plan: * Treatment: * Images: * Electronic signature of ANIYAH Stevenson on 12/01/2024 at 02:34 AM EDT Sign off status: Pending * Provider: ANIYAH Bazzi Date: 10/31/2023 Generated for Ramoni felicia/Jennifer/eTransmitting on: 12/01/2024 02:34 AM EDT
[2024-12-01 02:32] VITALS: BP 157/93; PULSE 101; TEMP 37.4; O2SAT 97; BMI 51.7
--- OUTSIDE RECORDS SUMMARY | 2024-12-01 02:34 | XMS_ITS | CCD ---
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 Records Found Additional Source Comments INFORMATION SOURCE (unrecogn ized section and content) DATE CREATED AUTHOR 02/22/2022 [employer] DATE CREATED AUTHOR AUTHOR'S LEAH WILLIAM 08/19/2023 [facility] REASON FOR VISIT (unrecogniz ed section [...] BE BASED ON THE PRIMARY CLINICAL RECORDS. [employer] provides no warranty or guarantee of the accuracy or completeness of information in this document.
--- OUTSIDE RECORDS SUMMARY | 2024-12-01 02:34 | XMS_ITS | Patient Health Record ---
Author Organization [employer] Address [address] [place] [address] Care Team Providers Care Hearing Healthcare Practitioner Name Role Phone Sanjay Candelario Primary Care Provider [phone] Zahra Lopez Unavailable [phone] Allergies Allergen (clinical drug ingredient) Drug/Non Drug Allergy documented on EMR Reaction Allergy Type Onset Date Status ADHESIVE (uncoded) HOLES IN SKIN Allergy Active Claritin RACING HE[employer]AT Drug Allergy Active prednisone Prednisone RACING HEART BEAT Drug Allergy Active Reason For Referral No Information Medications Medication SIG (Take, Route, Frequency, Duration) Notes Start Date End Date Status Caplyta 42 MG 1 capsule Orally Onc e a day; Duration: 30 day(s) 08/15/2023 Active clomiPHENE Citrate 50 MG 1 tablet Orally Once a day; Duration: 5 day(s) 09/08/2013 Not-Gay ng metFORMIN HCl 750 mg 1 tablet with meals Orally daily Not-Taking Nczmdd-P46-Vouzjsxwx Factor 800-500-20 MCG-MCG-MG 1 tablet Orally BID; Duration: 30 day(s) Not-Taking metFORMIN HCl ER 750 MG 1 tablet with ev ening meal Orally Once a day; Duration: 30 day(s) 10/03/2013 Not-Taking Adipex-P 37.5 MG as directed Orally daily 04/06/19 15 Not-Taking Zofran PRN Not-Taking Dramamine 25 MG 1 tablet as needed Orally every 12 hrs Not-Taking Sertraline HCl 50 MG 2 tablet Orally Onc e a day; Duration: 30 days 05/28/2023 Not-Jacquelyn moulton Social History Tobacco Use: Social History Observation Description Date Details (start date - stop date) Never Smoker NA - NA Tobacco Screen: Question Answer Notes Are you a: never smoker Depression Screening (PHQ-9): Question Answer Notes Little interest or pleasure in doing things Nearly every day Feeling down, depressed, or hopeless Nearly ever y day Trouble falling or staying a sleep, or sleeping too much Nearly every day Feeling tired or having little energy Nearly liyah ry day Poor appetite or overeating Nearly every day Feeling bad about yourself-o r that you are a failure or have let yourself or your family down Nearly every day Trouble concentrating on thi ngs, such as reading the newspaper or watching television Nearly every day Moving or speaking so slowly that other people could have noticed. Or the opposite being so fidgety or restless that you have been moving around a lot more than usual Nearly every day Thoughts that you would be b lissa off , or of hurting yourself in some way Nearly every day(Consider Suicide Assessment Risk) Total Score 27 Intepretation Severe Depression Problems Problem Type SNOMED Code ICD Code Onset Dates Problem Status W/U Status Risk Notes Problem Mixed bipolar affective disorder, severe, with psychosis (583185601) Bipolar disorder, current episode mixed, severe, with psychotic features (F31.64) Active confirmed Problem Posttraumatic stress disorder (95596210) PTSD (post-traumatic stress disorder) (F43.10) Active confirmed Problem Insomnia disorder related to another mental disorder (48433751) Psychophysiological insomnia (F51.04) Active confirmed Problem Generalized anxiety disorder (47790104) Anxiety, generalized (F41.1) Active confirmed Plan Of Treatment No Information Medical (General) History Medical History History ICD Code PCOS LEVEL 3 PTSD anxiety
--- NOTE | 2024-12-01 02:57 | ED_ITS ---
HPI - Abdominal Pain General Chief Complaint: Abdominal Pain Stated Complaint: ABDOMINAL PAIN Time Seen by Provider: 12/01/24 02:52 Source: patient Mode of arrival: walk-in Limitations: no limitations History of Present Illness HPI narrative: cc -abdominal pain. Possible urine infection Patient presents with waxing and waning abdominal pain, intermittent fevers and blood in her urine that has been happening for almost a week. She tried taking Azo ledo-cgr-qzihxxm thinking that it might be a urinary tract infection but her symptoms have persisted. She told that she vomited tonight after eating a [employer]. She also admits to pain throughout the abdomen, bilaterally, worse in the lower quadrants. She told me that she thought the pain might be secondary to menstrual cramping and had taken Midol. She said that she was concerned it might be acid related and therefore was taking an antacid without improvement. Related Data Previous Rx's ?Medication ?Instructions ?Recorded ciprofloxacin HCl 500 mg tablet 500 mg PO BID #14 tabs 12/01/24 (Cipro) Allergies Allergy/AdvReac Type Severity Reaction Status Date / Time dicyclomine Allergy Severe Hives Verified 12/01/24 02:41 PFSH PFSH Social History Little interest or pleasure in doing things: not at all Feeling down, depressed, or hopeless: not at all Exam Narrative Exam Narrative: Nurses notes and vital signs reviewed and patient is not hypoxic. afebrile General: Well-appearing and in no apparent distress. Skin: Warm, dry, no pallor noted. Eye: Pupils are equal, round and EOMI. No scleral icterus. Ears, Nose, Mouth, and Throat: Oral mucosa is moist Cardiovascular: Regular Rate and Rhythm without murmur, gallop or rub. Respiratory: No accessory muscle use or respiratory distress. Lungs are clear to auscultation, no wheezing, rales or rhonchi Back: No CVA tenderness Musculoskeletal: normal ROM, no calf or popliteal tenderness, no lower extremity edema/swelling GI: Abdomen is soft, non-distended. Normal bowel sounds. Despite complaining of pain throughout the abdomen, no abdominal tenderness to palpation. No rebound, guarding, or rigidity noted. Neurological: A&O x4. No cranial nerve dysfunction observed. No truncal ataxia. Moves all extremities. Sensation intact. Psychiatric: Cooperative and interactive. Normal mood and affect. Constitutional Vital Signs, click to edit/add: Last Vital Signs Temp 99.3 F 12/01/24 02:32 Pulse 101 H 12/01/24 02:32 Resp 18 12/01/24 02:32 BP 157/93 H 12/01/24 02:32 Pulse Ox 97 12/01/24 02:58 O2 Del Method Room Air 12/01/24 02:58 Course Vital Signs Vital signs: Vital Signs Temperature 99.3 F 12/01/24 02:32 Pulse Rate 101 H 12/01/24 02:32 Respiratory Rate 18 12/01/24 02:32 Blood Pressure 157/93 H 12/01/24 02:32 Pulse Oximetry 97 12/01/24 02:32 Oxygen Delivery Method Room Air 12/01/24 02:32 Temperature 99.3 F 12/01/24 02:32 Pulse Rate 101 H 12/01/24 02:32 Respiratory Rate 18 12/01/24 02:32 Blood Pressure 157/93 H 12/01/24 02:32 Pulse Oximetry 97 12/01/24 02:58 Oxygen Delivery Method Room Air 12/01/24 02:58 MDM - Abdominal Pain MDM Narrative Medical decision making narrative: Urinalysis reveals an acute urinary tract infection with large leukocyte esterase, positive nitrites, 10 to white blood cells and moderate bacteria. The patient was given a dose of ciprofloxacin in the emergency department and discharged with a prescription for additional Cipro to be taken twice daily. She can follow-up with her PCP as needed or return to the ED if she worsens. Urine cultures pending. Lab Data Attestation: I reviewed the patient's lab results. Labs: Lab Results 12/01/24 Range/Units 02:45 Urine Color Yellow (YELLOW) Urine Clarity Clear (CLEAR) Urine pH 6.0 (5.0-9.0) Ur Specific [place] 1.015 (1.005-1.025) Urine Protein 30 A (NEG/TRACE) mg/dL Urine Glucose (UA) Negative (NEGATIVE) mg/dL Urine Ketones Negative (NEGATIVE) mg/dL Urine Occult Blood Moderate A (NEGATIVE) Urine Nitrite Positive A (NEGATIVE) Urine Bilirubin Negative (NEGATIVE) Urine Urobilinogen 0.2 (0.2-1.0) EU/dL Ur Leukocyte Esterase Large A (NEGATIVE) Urine RBC 2-5 A (0-2) #/HPF Urine WBC 10-20 A (NONE SEEN) #/HPF Ur Squamous Epith Cells Few A (NONE/RARE) #/LPF Ur Transition Epith Cell Few A (NONE SEEN) #/LPF Urine Crystals None seen (None Seen) #/HPF Urine Bacteria Moderate A (NONE SEEN) #/HPF Urine Casts None seen (NONE SEEN) #/LPF Urine Mucus None seen (NONE SEEN) Ur Culture Indicated? Yes-[facility] Discharge Plan Discharge Chief Complaint: Abdominal Pain Clinical Impression: UTI (urinary tract infection), Abdominal pain Patient Disposition: Home, Self-Care Time of Disposition Decision: 03:17 Prescriptions / Home Meds: New ciprofloxacin HCl [Cipro] 500 mg tablet 500 mg PO BID Qty: 14 0RF Print Language: Korean Instructions: Urinary Tract Infection in Women (ED), Abdominal Pain (ED) Referrals: Physician,Non-Staff, MD [Primary Care Provider] - 1 week
[2024-12-01 02:58] VITALS: O2SAT 97
[2024-12-01 03:02] LABS: Glucose Urine UA NEGATIVE (NEGATIVE)
[2024-12-01 03:08] LABS: Cast Seen? NONE SEEN #/LPF (NONE SEEN); Crystals Seen? None Seen #/HPF (None Seen); Urine Culture Indicated YES-FRMC
[2024-12-01] MEDS: CIPROFLOXACIN HCL 500 MG TABLET PO (03:36)
== END 2024-12-01 03:53 | disposition home or self-care (01) ==
PROVIDERS: Emergency Provider Emergency Medicine
DX: N39.0 Urinary tract infection, site not specified (principal); R10.9 Unspecified abdominal pain
CPT/HCPCS: 81001; 87086; 87088; 87186; 99283